=== PATIENT | female | born 1960 | race Caucasian/White ===

== ENCOUNTER 2020-05-08 11:00 | Emergency (ER) | payer MEDICAID ==
[~2020-05-08] VITALS: Ht 160 cm; Wt 81.4 kg
[2020-05-08 11:29] VITALS: BP 139/61
--- NOTE | 2020-05-08 11:51 | RAD ---
Left index finger 3 views. HISTORY: Swelling, laceration 3 views were taken of the left index finger. There is not evidence of an acute fracture or osseous ab normality. IMPRESSION: 1. No osseous abnormality noted in the left index finger. Electronically signed by: Jean Vieyra MD (05/08/2020 11:49 AM) [id number]
[2020-05-08] MEDS ORDERED: CEPH500T PO (12:10)
--- NOTE | 2020-05-08 12:11 | PHYS DOC ---
Past Medical History Past Medical History: Diabetes-Type II, Hypertension Additional Past Medical Histor: thyroid disease Past Surgical History: Other Additional Past Surgical Histo: thyroidectomy Smoking Status: Never Smoker Alcohol Use: None General Adult EDM: Chief Complaint: FINGER INJURY HPI: HPI: Patient is a 60 year old female with history of diabetes type 2, hypertension, who presents to the complaining of 8 out of 10 throbbing left index finger pain swelling and redness, symptoms began yesterday. She states 3 days ago she nicke d her left index finger with a knife while cooking dinner on the left index finger. Patient denies anything specifically exacerbating or relieving her pain. Review of Systems: Review of Systems: Constitutional: Denies fever or chills. [] Musculoskeletal: Reports left index finger swelling, pain, redness. Denies back pain Integument: Denies rash. [] Neurologic: Denies headache, focal weakness or sensory changes. [] Psychiatric: Denies depression or anxiety. [] Heart Score: Risk Factors: Risk Factors: DM, Current or recent (<one month) smoker, HTN, HLP, family history of CAD, obesity. Risk Scores: Score 0 - 3: 2.5% MACE over next 6 weeks - Discharge Home Score 4 - 6: 20.3% MACE over next 6 weeks - Admit for Clinical Observation Score 7 - 10: 72.7% MACE over next 6 weeks - Early Invasive Strategies Current Medications: Current Medications Medications (Trade) Dose Ordered Sig/Cinthia Start Time Stop Time Status Last Admin Dose Admin Diphtheria/ Tetanus/Acell Pertussis (ADACEL TDap SYRINGE) 0.5 ml ONCE ONCE 05/08/20 12:15 05/08/20 12:16 UNV Physical Exam: PE: Constitutional: Well developed, well nourished, no acute distress, non-toxic appearance. [] Skin: Warm, dry, no erythema, no rash. [] Back: No tenderness, no CVA tenderness. [] Extremities: Medial aspect of the left index finger at the MIP joint with a superficial laceration approximately 0.3 cm. There is surrounding approximately 1 cm of redness/possible cellulitis. There is no warmth or drainage from the region. Patient able to flex and extend the left index finger at the MIP joint, PIP joint and DIP joint. Adequate radial sensation to the left index finger. Cap refill less than 2 seconds to left index finger. Neurologic: Alert and oriented X 3, normal motor function, normal sensory function, no focal deficits noted. [] Psychologic: Affect normal, judgement normal, mood normal. [] Current Patient Data: Vital Signs: Vital Signs Date Time Temp Pulse Resp B/P (MAP) Pulse Ox O2 Delivery O2 Flow Rate FiO2 05/08/20 11:29 98.1 68 16 139/61 (87) 98 Room Air 98.1 EKG: EKG: [] Radiology/Procedures: Radiology/Procedures: []PROCEDURE: FINGER(S) LEFT Left index finger 3 views. HISTORY: Swelling, laceration 3 views were taken of the left index finger. There is not evidence of an acute fracture or osseous abnormality. IMPRESSION: 1. No osseous abnormality noted in the left index finger. Electronically signed by: Jean Cagle MD (05/08/2020 11:49 AM) [id number] DICTATED and SIGNED BY: EJAN CAGLE MD DATE: 05/08/20 [id number] Course & Med Decision Making: Course & Med Decision Making Pertinent Labs and Imaging studies reviewed. (See chart for details) This is a 60-year-old female patient presenting to the ED today with left index finger swelling pain and redness that began yesterday after she nicked herself with a knife 3 days ago. The area appears to have early cellulitis. Left index finger x-rays interpreted by radiologist are negative. Tetanus updated in the ED. Discharged on cephalexin. Provided return precautions. Dragon Disclaimer: Dragon Disclaimer: This electronic medical record was generated, in whole or in part, using a voice recognition dictation system. Departure Departure Impression: Primary Impression: Cellulitis of left index finger Disposition: 01 DC HOME SELF CARE/HOMELESS Condition: STABLE Referrals: GEORGI LANTIGUA MD (PCP) follow up in 1-2 weeks Patient Instructions: Cellulitis, [id number] Additional Instructions: You were evaluated in the emergency room, your left index finger x-rays are negative for any acute findings. You have an early cellulitis/skin infection to the affected area. Please take the prescribed antibiotics until completed. Please follow-up with your primary care doctor in 1 to 2 weeks. Come back to the ED at any point symptoms worsen. Scripts Cephalexin (CEPHALEXIN) 500 Mg Tablet 1 TAB PO TID, #30 TAB Prov: MUTUNGA,NAYA [employer] OPERATOR 05/08/20 NAYA CABELLO APRN May 08, 2020 12:11
[2020-05-08] MEDS ORDERED: DIPH,PERTUSS(ACELL),TET VAC/PF 0.5 ML SYRINGE. VAX IM ONE ×2 (12:15→12:18)
== END 2020-05-08 12:28 | disposition home or self-care (01) ==
LOC: ER 11:00
DX: L03.012 Cellulitis of left finger (principal); M79.645 Pain in left finger(s); R60.0 Localized edema; R20.2 Paresthesia of skin; E11.9 Type 2 diabetes mellitus without complications; I10 Essential (primary) hypertension; Z90.89 Acquired absence of other organs; Z98.890 Other specified postprocedural states
CPT/HCPCS: 73140; 90471; 90715; 99283